=== PATIENT | female | born 1985 | race Hispanic/Latino ===

== ENCOUNTER 2018-03-27 23:33 | Emergency (ER) | payer MEDICAID ==
[2018-03-28 00:43] LABS: RAPID GROUP A STREP NEGATIVE (NEGATIVE)
== END 2018-03-28 01:44 | disposition home or self-care (01) ==
LOC: EDH 23:33
DX: J10.1 Influenza due to other identified influenza virus with other respiratory manifestations (principal)
CPT/HCPCS: 71046; 87804; 87880

== ENCOUNTER 2024-09-07 07:02 | Day surgery (SDC) | payer MEDICAID ==
[2024-09-07] VITALS (12 sets, daily range): BP systolic 100–137; BP diastolic 57–82; PULSE 69–91; RESP 15–20; TEMP 97.1–97.6
[~2024-09-07] VITALS: Ht 149.9 cm; Wt 89.4 kg
[2024-09-07] MEDS: 0.9%NACL 1000ML 1,000 ML IV ONE (07:44)
[2024-09-07] MEDS ORDERED: ERGO500093 PO (07:50)
[2024-09-07] MEDS ORDERED: PHEN-308 PO (07:50)
[2024-09-07] MEDS ORDERED: FERR-72 PO (07:50)
[2024-09-07] MEDS ORDERED: FOLI0.8C PO (07:50)
[2024-09-07] MEDS ORDERED: LIDOCAINE PF 100MG/5ML (2%) SYRINGE 5ML ONE (07:56)
== END 2024-09-07 10:10 | disposition home or self-care (01) ==
LOC: DAH 07:02 → ENDO 07:02
PROVIDERS: ATTEND Surgery
DX: R12 Heartburn (principal); K22.89 Other specified disease of esophagus; K31.89 Other diseases of stomach and duodenum; K29.50 Unspecified chronic gastritis without bleeding; E11.9 Type 2 diabetes mellitus without complications; E66.01 Morbid (severe) obesity due to excess calories; M15.9 Polyosteoarthritis, unspecified; E28.2 Polycystic ovarian syndrome; D50.9 Iron deficiency anemia, unspecified; E56.9 Vitamin deficiency, unspecified; E55.9 Vitamin D deficiency, unspecified; E78.5 Hyperlipidemia, unspecified; Z68.39 Body mass index [BMI] 39.0-39.9, adult; G89.4 Chronic pain syndrome; Z90.49 Acquired absence of other specified parts of digestive tract; Z79.899 Other long term (current) drug therapy
CPT/HCPCS: 81025; 43239; J7030; J2003; J2704; A4620; A4215; A4223; A7002; A4222; A4221; A4663; A4606; J3490